=== PATIENT | female | born 1970 | race Caucasian/White ===

== ENCOUNTER → 2017-02-18 | Outpatient (CLI) | payer OTHER | LOC: FIMAGING 10:44 | PROVIDERS: ATTEND Obstetrics & Gynecology Gynecology | DX: Z12.31 Encounter for screening mammogram for malignant neoplasm of breast (principal) | CPT/HCPCS: G0202 ==

== ENCOUNTER → 2018-03-09 | Outpatient (CLI) | payer OTHER | LOC: FIMAGING 09:21 | PROVIDERS: ATTEND Obstetrics & Gynecology Gynecology | DX: Z12.31 Encounter for screening mammogram for malignant neoplasm of breast (principal) ==

== ENCOUNTER → 2018-04-23 | Outpatient (CLI) | payer OTHER | LOC: GIMAGING 19:39 | PROVIDERS: ATTEND Nurse Practitioner Acute Care | DX: M79.672 Pain in left foot (principal) | CPT/HCPCS: 73630-PO ==

== ENCOUNTER 2018-05-29 05:50 | Day surgery (SDC) | payer OTHER ==
[2018-05-29] MEDS ORDERED: LIDOCAINE 1% 2 ML INJ ID PRN (06:01)
[2018-05-29] MEDS ORDERED: LR 1,000 ML IV ONE (06:01)
[2018-05-29] MEDS ORDERED: BUPIVACAINE 0.25% 30 ML SDV ONE (07:00)
--- NOTE | 2018-05-29 07:09 | PDANEPAE ---
ANE History of Present Illness Uterine mass, here for uterine ablation and laparoscopy ANE Past Medical History - Cardiovascular History Hx Hypertension: No Hx Arrhythmias: No Hx Chest Pain: No Hx Coronary Artery / Peripheral Vascular Disease: No Hx CHF / Valvular Disease: No Hx Palpitations: Yes Cardiovascular History Comment: OCCAS PALPITATIONS INFREQUENTLY - NO DX - PT STATES PATs BUT NEVER CAUGHT ON EKG - Pulmonary History Hx COPD: No Hx Asthma/Reactive Airway Disease: No Hx Recent Upper Respiratory Infection: No Hx Oxygen in Use at Home: No Hx Sleep Apnea: No Sleep Apnea Screening Result - Last Documented: Negative - Neurologic History Hx Cerebrovascular Accident: No Hx Seizures: No Hx Dementia: No - Endocrine History Hx Diabetes: No Endocrine History Comment: FAMILY HX - CELIA'S - Renal History Hx Renal Disorders: No - Liver History Hx Hepatic Disorders: No - Neurological & Psychiatric Hx Hx Neurological and Psychiatric Disorders: No Neurological / Psychiatric History Comment: ADD - Cancer History Hx Cancer: No - Congenital Disorder History Hx Congenital Disorders: No - GI History Hx Gastrointestinal Disorders: No - Other Health History Other Health History: GOUT - Chronic Pain History Chronic Pain: Yes (TOE PAIN) - Surgical History Prior Surgeries: SEPTOPLASTY. WISDOM TEETH ANE Review of Systems Review of Systems: - Exercise capacity METS (RN): 4 METS ANE Patient History - Allergies Allergies/Adverse Reactions: Penicillins Allergy (Verified 05/19/18 15:08) Hives - Home Medications Home Medications: Herbals/Supplements -Info Only 05/19/18 [Last Taken 05/20/18] Ibuprofen 05/19/18 [Last Taken 05/20/18] - NPO status NPO Since - Liquids (Date): 05/28/18 NPO Since - Liquids (Time): 22:30 NPO Since - Solids (Date): 05/28/18 NPO Since - Solids (Time): 20:30 - Smoking Hx Smoking Status: Never smoked ANE Labs/Vital Signs - Vital Signs Blood Pressure: 113/74 Heart Rate: 87 Respiratory Rate: 18 O2 Sat (%): 95 Height: 167.64 cm Weight: 70.307 kg ANE Physical Exam - Airway Neck exam: FROM Mallampati Score: Class 1 Mouth exam: normal dental/mouth exam - Pulmonary Pulmonary: no respiratory distress, no rales or rhonchi - Cardiovascular Cardiovascular: regular rate and rhythym, no murmur, rub, or gallop - ASA Status ASA Status: II ANE Anesthesia Plan Anesthesia Plan: general endotracheal anesthesia Total IV Anesthesia: No
[2018-05-29] MEDS ORDERED: MIDAZOLAM 2 MG/2 ML VIAL ONE (07:15)
[2018-05-29] MEDS ORDERED: MIDAZOLAM 2 MG/2 ML VIAL IVP ONE (07:17)
[2018-05-29] MEDS ORDERED: KETOROLAC 30 MG/1 ML SDV ONE (07:21)
[2018-05-29] MEDS ORDERED: DEXAMETHASONE 4 MG/ML VIAL ONE (07:21)
[2018-05-29] MEDS ORDERED: ONDANSETRON 4 MG/2 ML VIAL ONE (07:21)
[2018-05-29] MEDS ORDERED: fentaNYL 250 MCG/5 ML INJ ONE (07:21)
[2018-05-29] MEDS ORDERED: SUGAMMADEX SODIUM 200 MG/2 ML VIAL IVP ONE (07:21)
[2018-05-29] MEDS ORDERED: ROCURONIUM 50 MG/5 ML VIAL ONE (07:21)
[2018-05-29] MEDS ORDERED: PROPOFOL 200 MG/20 ML VIAL ONE ×2 (07:21→08:53)
[2018-05-29] MEDS ORDERED: LIDOCAINE 2% 100 MG/5 ML SYR ONE (07:21)
--- NOTE | 2018-05-29 07:21 | PDHPUP ---
History & Physical Update H&P update statement: This history and physical update is based on an assessment of the patient which was completed after admission or registration (within 24 hours), but prior to the surgery/procedure. H&P update: H&P reviewed & patient examined, no change in patient's condition since H&P completed
[2018-05-29] MEDS ORDERED: PROMETHAZINE HCL 25 MG/ML INJ IVP PRN (09:03)
[2018-05-29] MEDS ORDERED: MEPERIDINE 25 MG/0.5 ML AMP IVP PRN (09:03)
[2018-05-29] MEDS ORDERED: LR 500 ML IV PRN (09:03)
[2018-05-29] MEDS ORDERED: ACETAMINOPHEN 500 MG TAB PO PRN (09:03)
[2018-05-29] MEDS ORDERED: HYDROmorphONE/DILAUDID 2 MG/ML INJ IVP PRN (09:03)
[2018-05-29] MEDS ORDERED: oxyCODONE IR 5 MG TAB PO PRN (09:03)
[2018-05-29] MEDS ORDERED: NALOXONE HCL 0.4 MG/ML INJ IVP PRN (09:03)
[2018-05-29] MEDS ORDERED: fentaNYL 100 MCG/2 ML INJ ONE (09:25)
[2018-05-29] MEDS: fentaNYL 100 MCG/2 ML INJ IVP PRN ×2 (09:26→09:44)
--- NOTE | 2018-05-29 09:28 | POSTANESTH ---
Post Anesthetic Evaluation Cardiovascular Status: Normal, Stable Respiratory Status: Normal, Stable Level of Consciousness/Mental Status: Can Participate in Eval, Mildly Sleepy, Arousable Pain Control: Adequate, Prn Tx Ordered Nausea/Vomiting Control: Adequate, Prn Tx Ordered Complications Possibly Related to Anesthesia: None Noted
--- NOTE | 2018-05-29 09:30 | POSTOPPROG ---
Post Op Note Date of Operation: 05/29/18 Surgeon: Lynda Goldstein Anesthesiologist: Valerie Rojas Anesthesia: GET(General Endotracheal) Pre-op Diagnosis: right adnexal mass, uterine polyps and DUB Post-op Diagnosis: same Indication: as above Procedure: L/S removal of right adnexal mass and h/s polypectomy and Novasure ablation Findings: right ovarian complex mass 4x5 cm and multiple posterior wall polyps Inf/Abcess present in the surg proc area at time of surgery?: No EBL: Minimal Complications: none
[2018-05-29] MEDS: DIAZEPAM 5 MG/ML 1 ML SYR IVP PRN ×2 (10:00→10:21)
[2018-05-29] MEDS ORDERED: DIAZEPAM 5 MG/ML 1 ML SYR ONE (10:00)
[2018-05-29 11:26] VITALS: BP 125/83
--- NOTE | 2018-05-29 12:23 | GOP ---
[f rep st] OPERATIVE REPORT DATE OF OPERATION: 05/29/2018 SURGEON: Lynda Goldstein MD ANESTHESIA: General endotracheal. ANESTHESIOLOGIST: Ej Padilla DO PREOPERATIVE DIAGNOSIS: 1. Right complex adnexal mass. 2. Dysfunctional uterine bleeding with endometrial polyps. POSTOPERATIVE DIAGNOSIS: 1. Right complex adnexal mass. 2. Dysfunctional uterine bleeding with endometrial polyps. PROCEDURE PERFORMED: Laparoscopic removal of right adnexal mass, hysteroscopic resection of endometr ial polyps, and NovaSure endometrial ablation. FINDINGS: Normal uterus, normal left ovary. The right adnexal mass was approximately 5 cm and was m ulticystic. There was no peritoneal abnormality and no adhesions. ESTIMATED BLOOD LOSS: Minimal. INDICATIONS: The patient is a 47-year-old, G2, P1, who presented with heavy periods and painful mens trual cramps and underwent ultrasound in March 2018, incidentally noted to have a 5 cm complex rig ht adnexal mass. There were some filmy septations and possibly some very small solid components with out Doppler flow. CA-125 was normal at 13. Repeat ultrasound done a month later showed stable mass without change in appearance and size, and discussed with patient removal of adnexal mass for patholo gy as well as doing a hysteroscopic polypectomy and ablation to help control her periods. DESCRIPTION OF PROCEDURE: With informed consent signed, patient taken to the operating room, placed under general anesthesia and intubated without complication, placed in a low dorsal lithotomy positio n, prepped and draped in the usual sterile fashion. Fletcher catheter placed. Tenaculum placed on the anterior lip of the cervix and a Belcher cannula placed into the cervical os. Attention turned to the abdomen and incision sites were pre-injected with 0.25% Marcaine. An incision in the inferior aspect of the umbilicus was done with a scalpel and Veress needle placed with ease into the abdominal cavit y which was then insufflated with CO2 gas. Once an adequate pneumoperitoneum was developed, a 5 mm t rocar placed and a 30-degree laparoscope placed through this trocar, and no entrance injury noted and findings as noted above. A 5 mm incision was made in the suprapubic region and a 5 mm trocar placed , and then a 10 mm trocar placed in the left lower quadrant. The adnexal mass was grasped and the Li gaSure cauterizing equipment was used to transect 1st across the infundibulopelvic ligament and then across the peritoneum, and then the right fallopian tube was transected with the LigaSure and then th e utero-ovarian ligament transected with the LigaSure. Once it was felt that the entire mass was heaven ed up, it was placed in the endobag and removed from the left-sided port. The bag was opened on the abdomen and the cyst was drained in order to have the cyst removed through this port, and it was hemo rrhagic-looking material. Inspection of the site done and noted to be hemostatic. The abdomen desuf flated and then incision sites closed with 4-0 Monocryl and then the left lower quadrant deep layer o f the fascia was closed with a 2-0 Vicryl. Next, attention turned to the perineum and the cone cannu la removed. The cervix sounded to 9 cm and dilated up to 6 mm. The 6 mm hysteroscope placed into e uterine cavity and several posterior wall polyps noted. The [employer] TruClear morcellator was placed into the hysteroscope and resection of these polyps done without complication. Net fluid deficit was less than 100 cc. Once it was felt that all the endometrial tissue had been removed, the hysteroscope removed and the NovaSure endometrial ablation device placed into the uterine cavity. T he length was 6.5 cm, width was 4 cm. Integrity test passed and burn time was approximately 1 minute . This was removed. There was slight bleeding from the cervix and this was improved with tamponade with sponge sticks. Once the bleeding was under control, patient was placed in the supine position, awakened in the operating room, taken to recovery room in stable condition, having tolerated procedur e well. COMPLICATIONS: None. /[id number]/MODL
== END 2018-05-29 11:20 | disposition home or self-care (01) ==
LOC: FSGY 05:50
PROVIDERS: ATTEND Obstetrics & Gynecology Gynecology
DX: R19.09 Other intra-abdominal and pelvic swelling, mass and lump (principal); N84.0 Polyp of corpus uteri; N93.8 Other specified abnormal uterine and vaginal bleeding
CPT/HCPCS: 58563; 58661; C1782; J1100; J1885; J2001; J2250; J2405; J2704; J3010; J3360